=== PATIENT | male | born 2000 | race Caucasian/White ===

== ENCOUNTER 2022-05-10 22:47 | Emergency (ER) | payer SELFPAY ==
[~2022-05-10] VITALS: Ht 167.6 cm; Wt 70.3 kg
[2022-05-10 22:59] VITALS: BP_SYST 132
--- NOTE | 2022-05-10 23:11 | NUR ---
Patient arrived to ED 1 for c/o snowboarding accident. Patient said that at 9 PM, patient was snowboarding and landed on the "back of his head." Patient denies losing consciousness. Patient explained that he had a nosebleed and was vomiting afterwards. Patient denies vomiting at the moment. Patient is alert and oriented x4. No neuro deficits actively known. Patient respiration even and unlabored. No shortness of breath. Will continue to monitor. Call light within reach.
--- NOTE | 2022-05-10 23:14 | NUR ---
Patient to ER bed 1 to gown for evaluation. Side rails up. Report given to ESME LOCKHART(REG).
--- NOTE | 2022-05-10 23:18 | NUR ---
Dr. Claudio at bedside to [facility] patient.
[2022-05-10 23:30] VITALS: BP_SYST 124
--- NOTE | 2022-05-11 01:15 | NUR ---
Patient given written and verbal discharge instructions and verbalizes understanding. ER MD discussed with patient the results and treatment provided. Patient in stable condition. ID arm band removed. Opportunity for questions provided and answered. Medication side effect fact sheet provided.
== END 2022-05-10 23:30 | disposition home or self-care (01) ==
LOC: SED 22:47
DX: S09.90XA Unspecified injury of head, initial encounter (principal); Z79.899 Other long term (current) drug therapy; V00.311A Fall from snowboard, initial encounter; Y93.89 Activity, other specified; Y92.89 Other specified places as the place of occurrence of the external cause; Y99.8 Other external cause status
CPT/HCPCS: 99281